=== PATIENT | female | born 1990 | race Caucasian/White ===

== ENCOUNTER 2018-10-25 01:28 | Emergency (ER) | payer OTHER ==
--- NOTE | 2018-10-25 01:40 | ER Report ---
History and Physical Time Seen By MD: 01:40 Hx. of Stated Complaint: PT REPORTS VOMITING AND ABD PAIN FOR 12 HOURS. HPI/ROS CHIEF COMPLAINT: right lower abdominal pain HISTORY OF PRESENT ILLNESS: This is a 28 year old female. She is having right lower abdominal pain for the last 12 hours, worsening in severity. Associated nausea and vomiting as well. History of ovarian cysts in the past. This seems worse than past episodes. No diarrhea. No dysuria or changes in urination. Has had appendectomy and cholecystectomy in past. No fevers. Last period normal a few weeks ago. Allergies: Coded Allergies: Penicillins (Verified Allergy, Severe, THROAT SWELLING, 10/25/18) fentanyl (Verified Allergy, Severe, THROAT SWELLING AND HIVES, 10/25/18) iodine (Verified Allergy, Severe, ANAPHLAXIS, 10/25/18) ketorolac (Verified Allergy, Severe, THROAT SWELLING AND HIVES, 10/25/18) prochlorperazine (Verified Allergy, Severe, THROAT SWELLS AND RASH, 10/25/18) metoclopramide (Verified Allergy, Intermediate, RASH, 10/25/18) ondansetron (Verified Allergy, Intermediate, RASH, 10/25/18) haloperidol (Verified Adverse Reaction, Unknown, ANXIETY ATTACK, 10/25/18) Uncoded Allergies: IV CONTRAST (Allergy, Severe, ANAPLAXIS, 10/25/18) Home Meds Active Scripts Zolpidem Tartrate (AMBIEN) 10 Mg Tablet, 1 TAB PO QHS, #7 TAB 0 Refills Prov:LAUREN CHAVARRIA MD 10/25/18 Promethazine Hcl (PROMETHAZINE HCL) 12.5 Mg Supp.rect, 12.5 MG RC Q6H PRN for NAUSEA/VOMITING, #10 SUPP.RECT 0 Refills Prov:LAUREN CHAVARRIA MD 10/25/18 Promethazine Hcl (PROMETHAZINE HCL) 25 Mg Tablet, 25 MG PO Q6H, #20 TAB 0 Refills Prov:LAUREN CHAVARRIA MD 10/25/18 Oxycodone Hcl/Acetaminophen (PERCOCET 5-325 MG TABLET) 1 Each Tablet, 1 EACH PO Q4H PRN for PAIN, #12 TAB 0 Refills Prov:LAUREN CHAVARRIA MD 10/25/18 Reported Medications Sertraline Hcl (SERTRALINE HCL) 100 Mg Tablet, 3 TAB PO QDAY, TAB 10/25/18 Reviewed Nurses Notes: Yes Constitutional Vital Sign - Last 24 Hours 10/25/18 10/25/18 10/25/18 10/25/18 01:33 01:33 01:58 02:03 Temp 98.9 Pulse 110 99 Resp 16 B/P (MAP) 136/87 136/87 (103) 128/70 (89) Pulse Ox 94 84 O2 Delivery Room Air 10/25/18 10/25/18 10/25/18 10/25/18 02:13 02:28 02:30 02:35 Pulse 100 104 97 B/P (MAP) 119/73 (88) Pulse Ox 92 95 93 10/25/18 10/25/18 10/25/18 10/25/18 03:05 03:20 03:30 03:35 Pulse 94 97 79 B/P (MAP) 110/50 (70) Pulse Ox 89 97 85 10/25/18 10/25/18 10/25/18 10/25/18 03:50 04:00 04:05 04:20 Pulse 87 100 99 B/P (MAP) 125/79 (94) Pulse Ox 97 94 97 Intake and Output 10/24/18 10/24/18 10/25/18 15:00 23:00 07:00 Intake Total 1000 ml Balance 1000 ml Physical Exam General Appearance: The patient is alert. No acute distress. Eyes: Pupils are equal, round. No pallor, injection or icterus. ENT: Mucous membranes are moist. Respiratory: Lungs are clear to auscultation. Cardiovascular: Regular rate and rhythm. No murmurs, gallops or rubs. Normal perfusion. Gastrointestinal: Abdomen is soft, tender in right lower quadrant. Nondistended. Guarding but no rebound. Normal active bowel sounds. No costovertebral angle tenderness with percussion. Neurological: Alert and oriented x3. Skin: Warm and dry. No rashes. DIFFERENTIAL DIAGNOSIS: After history and physical exam, differential diagnosis was considered for abdominal pain in a female including but not limited to ovarian cyst, pelvic inflammatory disease, ovarian torsion, urinary tract infection Medical Decision Making Data Points Result Diagram: 10/25/18 0140 10/25/18 0140 Laboratory Hematology Test 10/25/18 01:31 10/25/18 01:40 Urine Color Yellow Urine Clarity Clear Urine pH 6.0 pH (4.8-9.5) Urine Specific [place] 1.016 Urine Protein Negative mg/dL (NEGATIVE) Urine Glucose (UA) Negative mg/dL (NEGATIVE) Urine Ketones Negative mg/dL (NEGATIVE) Urine Blood Negative (NEGATIVE) Urine Nitrite Negative (NEGATIVE) Urine Bilirubin Negative (NEGATIVE) Urine Urobilinogen Negative mg/dL (0.2-1.9) Urine Leukocyte Esterase Negative (NEGATIVE) Urine RBC None /HPF (0-2/HPF) Urine WBC 1 /HPF (0-5/HPF) Urine Squamous Epithelial Cells Many /LPF (</=FEW) Urine Bacteria Negative /HPF (NONE-FEW) Urine Mucus Few /HPF (NONE-FEW) Red Blood Count 4.73 M/uL (4.17-5.56) Mean Corpuscular Volume 81.6 fL (80.0-96.0) Mean Corpuscular Hemoglobin 26.6 pg (26.0-33.0) Mean Corpuscular Hemoglobin Concent 32.6 g/dL (32.0-36.0) Red Cell Distribution Width 15.4 % (11.5-14.5) Mean Platelet Volume 7.7 fL (7.2-11.1) Neutrophils (%) (Auto) 67.4 % (39.4-72.5) Lymphocytes (%) (Auto) 26.2 % (17.6-49.6) Monocytes (%) (Auto) 5.3 % (4.1-12.4) Eosinophils (%) (Auto) 0.5 % (0.4-6.7) Basophils (%) (Auto) 0.6 % (0.3-1.4) Nucleated RBC Relative Count (auto) 0.0 /100WBC Neutrophils # (Auto) 10.3 K/uL (2.0-7.4) Lymphocytes # (Auto) 4.0 K/uL (1.3-3.6) Monocytes # (Auto) 0.8 K/uL (0.3-1.0) Eosinophils # (Auto) 0.1 K/uL (0.0-0.5) Basophils # (Auto) 0.1 K/uL (0.0-0.1) Nucleated RBC Absolute Count (auto) 0.01 K/uL Sodium Level 139 mmol/L (137-145) Potassium Level 3.2 mmol/L (3.5-5.0) Chloride Level 109 mmol/L (98-107) Carbon Dioxide Level 22 mmol/L (22-31) Blood Urea Nitrogen 11 mg/dl (7-18) Creatinine 0.60 mg/dl (0.52-1.04) Glomerular Filtration Rate Calc > 60.0 Random Glucose 92 mg/dl (75-110) Calcium Level 8.8 mg/dl (8.4-10.2) Total Bilirubin 0.2 mg/dl (0.2-1.3) Aspartate Amino Transf (AST/SGOT) 16 U/L (0-35) Alanine Aminotransferase (ALT/SGPT) 20 U/L (0-56) Alkaline Phosphatase 124 U/L (0-126) Total Protein 7.4 g/dl (6.3-8.2) Albumin 4.1 g/dl (3.5-5.0) Amylase Level 77 U/L (0-110) Lipase 114 U/L (23-300) Human Chorionic Gonadotropin, Qual Negative (NEGATIVE) Chemistry Test 10/25/18 01:31 10/25/18 01:40 Urine Color Yellow Urine Clarity Clear Urine pH 6.0 pH (4.8-9.5) Urine Specific [place] 1.016 Urine Protein Negative mg/dL (NEGATIVE) Urine Glucose (UA) Negative mg/dL (NEGATIVE) Urine Ketones Negative mg/dL (NEGATIVE) Urine Blood Negative (NEGATIVE) Urine Nitrite Negative (NEGATIVE) Urine Bilirubin Negative (NEGATIVE) Urine Urobilinogen Negative mg/dL (0.2-1.9) Urine Leukocyte Esterase Negative (NEGATIVE) Urine RBC None /HPF (0-2/HPF) Urine WBC 1 /HPF (0-5/HPF) Urine Squamous Epithelial Cells Many /LPF (</=FEW) Urine Bacteria Negative /HPF (NONE-FEW) Urine Mucus Few /HPF (NONE-FEW) White Blood Count 15.3 k/uL (4.5-11.0) Red Blood Count 4.73 M/uL (4.17-5.56) Hemoglobin 12.6 g/dL (12.0-16.0) Hematocrit 38.6 % (34.0-47.0) Mean Corpuscular Volume 81.6 fL (80.0-96.0) Mean Corpuscular Hemoglobin 26.6 pg (26.0-33.0) Mean Corpuscular Hemoglobin Concent 32.6 g/dL (32.0-36.0) Red Cell Distribution Width 15.4 % (11.5-14.5) Platelet Count 359 K/uL (150-450) Mean Platelet Volume 7.7 fL (7.2-11.1) Neutrophils (%) (Auto) 67.4 % (39.4-72.5) Lymphocytes (%) (Auto) 26.2 % (17.6-49.6) Monocytes (%) (Auto) 5.3 % (4.1-12.4) Eosinophils (%) (Auto) 0.5 % (0.4-6.7) Basophils (%) (Auto) 0.6 % (0.3-1.4) Nucleated RBC Relative Count (auto) 0.0 /100WBC Neutrophils # (Auto) 10.3 K/uL (2.0-7.4) Lymphocytes # (Auto) 4.0 K/uL (1.3-3.6) Monocytes # (Auto) 0.8 K/uL (0.3-1.0) Eosinophils # (Auto) 0.1 K/uL (0.0-0.5) Basophils # (Auto) 0.1 K/uL (0.0-0.1) Nucleated RBC Absolute Count (auto) 0.01 K/uL Glomerular Filtration Rate Calc > 60.0 Calcium Level 8.8 mg/dl (8.4-10.2) Total Bilirubin 0.2 mg/dl (0.2-1.3) Aspartate Amino Transf (AST/SGOT) 16 U/L (0-35) Alanine Aminotransferase (ALT/SGPT) 20 U/L (0-56) Alkaline Phosphatase 124 U/L (0-126) Total Protein 7.4 g/dl (6.3-8.2) Albumin 4.1 g/dl (3.5-5.0) Amylase Level 77 U/L (0-110) Lipase 114 U/L (23-300) Human Chorionic Gonadotropin, Qual Negative (NEGATIVE) Urinalysis Test 10/25/18 01:31 Urine Color Yellow Urine Clarity Clear Urine pH 6.0 pH (4.8-9.5) Urine Specific [place] 1.016 Urine Protein Negative mg/dL (NEGATIVE) Urine Glucose (UA) Negative mg/dL (NEGATIVE) Urine Ketones Negative mg/dL (NEGATIVE) Urine Blood Negative (NEGATIVE) Urine Nitrite Negative (NEGATIVE) Urine Bilirubin Negative (NEGATIVE) Urine Urobilinogen Negative mg/dL (0.2-1.9) Urine Leukocyte Esterase Negative (NEGATIVE) Urine RBC None /HPF (0-2/HPF) Urine WBC 1 /HPF (0-5/HPF) Urine Squamous Epithelial Cells Many /LPF (</=FEW) Urine Bacteria Negative /HPF (NONE-FEW) Urine Mucus Few /HPF (NONE-FEW) EKG/Imaging Imaging TRANSVAGINAL NON-OB HISTORY: Right lower quadrant/pelvic pain for 15 hours. COMPARISON: None. TECHNIQUE: Endovaginal ultrasound pelvis. Grayscale, color flow Doppler and spectral Doppler were performed. FINDINGS: Uterus: Normal myometrial echotexture. Uterus measures 8.1 x 5.4 x 4.6 cm. There are nabothian cysts. Endometrium: Normal echotexture. Endometrial thickness is 6 mm. Ovaries and adnexa: Right: The right ovary is normal in echotexture. It measures 3.0 x 3.7 x 3.0 cm. It contains a 1.3 x 1.4 x 1.6 cm hemorrhagic cyst. There is normal ovarian venous and arterial flow, and normal arterial and venous waveforms are demonstrated. The right adnexum is normal. Left: Peripheral rim of normal ovarian tissue. Ovary measures 4.1 x 3.4 x 4.2 cm and contains a 3.9 x 3.1 x 4.0 cm simple cyst. There is normal ovarian arterial and venous flow, and normal venous and arterial waveforms are demonstrated. The left adnexum is normal. Free pelvic fluid: None. IMPRESSION: 1. Normal uterus. 2. 1.6 cm hemorrhagic right ovarian cyst. No evidence for torsion. 3. 4.0 cm simple left ovarian cyst. No evidence for torsion. Report Dictated By: Ira Castillo at 10/25/2018 3:30 AM ED Course/Re-evaluation Clinical Indication for ER IV: Hydration, IV Access ED Course An IV was started and the patient was given Phenergan 12.5 mg IV and morphine 4 mg IV. Also given a liter fluid. Ultrasound obtained after laboratory studies. Ultrasound showed a 1.6 cm right ovarian hemorrhagic cyst and a 4 cm simple cyst on the left. Patient kept requesting pain medicine, requesting a pain medicine that starts with a D. I did give her Dilaudid 0.5 mg before the ultrasound and then another dose after the ultrasound. She kept asking for more and I indicated that we cannot do that. I did give her another dose of 4 mg of morphine some more Phenergan and then send her home with Percocet and Phenergan to use at home. Did inform her that if she was not having pain control home she could return and we could contact [facility] to talk about whether she would need a surgical procedure, but recommended the best course of action would be to return home and follow up with her [facility] in [place]. Decision to Disposition Date: Oct 25, 2018 Decision to Disposition Time: 03:59 Depart Departure Latest Vital Signs Vital Signs Date Time Temp Pulse Resp B/P (MAP) Pulse Ox O2 Delivery O2 Flow Rate FiO2 10/25/18 04:20 99 97 10/25/18 04:00 125/79 (94) 10/25/18 01:33 98.9 16 Room Air Comment Of note: The patient had told us that she was calling her grandmother who was going to give her a ride. After she was given an oral dose of Percocet, the last IV dose of morphine, and the IV dose of Phenergan, the IV was removed and she went out, saying that her grandmother was here to pick her up. Nursing staff observed her going out and getting in her car and driving away. Impression: Primary Impression: Hemorrhagic cyst of right ovary Condition: Improved Disposition: HOME OR SELF-CARE New Scripts Zolpidem Tartrate (AMBIEN) 10 Mg Tablet 1 TAB PO QHS, #7 TAB 0 Refills Prov: LAUREN CHAVARRIA MD 10/25/18 Promethazine Hcl (PROMETHAZINE HCL) 12.5 Mg Supp.rect 12.5 MG RC Q6H PRN for NAUSEA/VOMITING, #10 SUPP.RECT 0 Refills Prov: LAUREN CHAVARRIA MD 10/25/18 Promethazine Hcl (PROMETHAZINE HCL) 25 Mg Tablet 25 MG PO Q6H, #20 TAB 0 Refills Prov: LAUREN CHAVARRIA MD 10/25/18 Oxycodone Hcl/Acetaminophen (PERCOCET 5-325 MG TABLET) 1 Each Tablet 1 EACH PO Q4H PRN for PAIN, #12 TAB 0 Refills Prov: LAUREN CHAVARRIA MD 10/25/18 Patient Instructions: Ovarian Cyst (ED) Additional Instructions: You have a simple cyst on your left ovary and a hemorrhagic cyst on the right ovary. These usually resolve on their own with time; however, we recommend follow-up with your [facility] for further evaluation if pain continues. Take Percocet 5/325, one every 4 hours as needed for pain. Take Ibuprofen 200mg over the counter tablets, 4 tablets every 6 hours for pain. You can take Phenergan, either the suppository or the tablet, every 6 hours as needed for nausea. Return to the ER for re-evaluation if symptoms worsening or not controlled at home. LAUREN CHAVARRIA MD Oct 25, 2018 01:40
[2018-10-25] MEDS ORDERED: SERT-181 PO (01:42)
[2018-10-25] MEDS ORDERED: NS(*) 0.9% 1000 ML BAG 1,000 ML IV ONE (01:48)
[2018-10-25] MEDS ORDERED: PROMETHAZINE 25 MG/ML 1 ML AMP IVP ONE ×2 (01:50→04:00)
[2018-10-25] MEDS ORDERED: MORPHINE 4 MG/ML SDV IVP ONE ×2 (01:50→04:00)
[2018-10-25 02:03] LABS: PLATELET COUNT, AUTOMATED 359 K/uL (150-450)
[2018-10-25] MEDS ORDERED: HYDROMORPHONE HCL 1 MG/ML SYRINGE IVP ONE ×2 (02:25→03:25)
--- NOTE | 2018-10-25 03:38 | RADIOLOGY IMAGING REPORT ---
FACILITY: [facility] - [place] PATIENT NAME: Kim Bautista : 1990 MR: [id number] V: [id number] EXAM DATE: ORDERING PHYSICIAN: LAUREN CHAVARRIA [place]CHNOLOG[place] [facility] [place] B[place] : 1990 Visit/Account:[id number] Date of Sevice: 10/25/2018 TRANSVAGINAL NON-OB HISTORY: Right lower quadrant/pelvic pain for 15 hours. COMPARISON: None. TECHNIQUE: Endovaginal ultrasound pelvis. Grayscale, color flow Doppler and spectral Doppler were per formed. FINDINGS: Uterus: Normal myometrial echotexture. Uterus measures 8.1 x 5.4 x 4.6 cm. There are nabothian cysts. Endometrium: Normal echotexture. Endometrial thickness is 6 mm. Ovaries and adnexa: Right: The right ovary is normal in echotexture. It measures 3.0 x 3.7 x 3.0 cm. It contains a 1 .3 x 1.4 x 1.6 cm hemorrhagic cyst. There is normal ovarian venous and arterial flow, and normal lauryn rial and venous waveforms are demonstrated. The right adnexum is normal. Left: Peripheral rim of normal ovarian tissue. Ovary measures 4.1 x 3.4 x 4.2 cm and contains a 3.9 x 3.1 x 4.0 cm simple cyst. There is normal ovarian arterial and venous flow, and normal venous a nd arterial waveforms are demonstrated. The left adnexum is normal. Free pelvic fluid: None. IMPRESSION: 1. Normal uterus. 2. 1.6 cm hemorrhagic right ovarian cyst. No evidence for torsion. 3. 4.0 cm simple left ovarian cyst. No evidence for torsion. Report Dictated By: Ira Castillo at 10/25/2018 3:30 AM Report E-Signed By: Ira Castillo at 10/25/2018 3:34 AM WSN:[id number]
[2018-10-25 04:00] VITALS: BP 125/79
[2018-10-25] MEDS ORDERED: PROMETHAZINE HCL 25 MG TAB TH 2 TAB/BOTTLE PO ONE (04:00)
[2018-10-25] MEDS ORDERED: PROMETHAZINE HCL(*) 25 MG SUPP PR ONE (04:00)
[2018-10-25] MEDS ORDERED: oxyCODONE/ACETAMIN 5/325MG TH 2 TAB/BOTTLE PO ONE (04:00)
[2018-10-25] MEDS ORDERED: PROM12.514 RC (04:01)
[2018-10-25] MEDS ORDERED: OXYC-865 PO (04:01)
[2018-10-25] MEDS ORDERED: PROM-110 PO (04:01)
[2018-10-25] MEDS ORDERED: ZOLP-350 PO (04:08)
== END 2018-10-25 04:25 | disposition home or self-care (01) ==
LOC: ER 01:42
DX: N83.201 Unspecified ovarian cyst, right side (principal)
CPT/HCPCS: 76830; 81001; 82150; 83690; 84703; 85025; 96361; 96374; 96375; 96376; 99284; J1170; J2270; J2550; J7030; J8498; 82040; 82247; 82310; 82374; 82435; 82565; 82947; 84075; 84132; 84155; 84295; 84450; 84460; 84520

== ENCOUNTER 2018-10-29 02:07 | Emergency (ER) | payer OTHER ==
[~2018-10-29 02:07] MED LIST: OXYC-865 PO; PROM-110 PO; PROM12.514 RC; SERT-181 PO; ZOLP-350 PO
--- NOTE | 2018-10-29 02:12 | ER Report ---
History and Physical Time Seen By MD: 02:11 HPI/ROS CHIEF COMPLAINT: Vomiting, abdominal pain HISTORY OF PRESENT ILLNESS: 28-year-old female presents ambulatory to the ER complaining of worsening right lower quadrant pain. Patient was seen here on 10/25/18 with right lower quadrant abdominal pain. Patient is status post appen dectomy and cholecystectomy. Patient had an ultrasound which showed a hemorrhagic right ovarian cyst and a 4 cm simple cyst on the left. Patient was discharged home with Percocet 5/325 No. 12 and Phenergan for her nausea control. She has numerous allergies. She returns complaining at she's been vomiting for the last 12 hours, unable to keep anything down. Including her pain medication. REVIEW OF SYSTEMS: Respiratory: No cough, no dyspnea. Cardiovascular: No chest pain, no palpitations. Gastrointestinal: As above Musculoskeletal: No back pain. Allergies: Coded Allergies: Penicillins (Verified Allergy, Severe, THROAT SWELLING, 10/25/18) fentanyl (Verified Allergy, Severe, THROAT SWELLING AND HIVES, 10/25/18) iodine (Verified Allergy, Severe, ANAPHLAXIS, 10/25/18) ketorolac (Verified Allergy, Severe, THROAT SWELLING AND HIVES, 10/25/18) prochlorperazine (Verified Allergy, Severe, THROAT SWELLS AND RASH, 10/25/18) metoclopramide (Verified Allergy, Intermediate, RASH, 10/25/18) ondansetron (Verified Allergy, Intermediate, RASH, 10/25/18) haloperidol (Verified Adverse Reaction, Unknown, ANXIETY ATTACK, 10/25/18) Uncoded Allergies: IV CONTRAST (Allergy, Severe, ANAPLAXIS, 10/25/18) Home Meds Active Scripts Promethazine HCl (Phenergan) 25 Mg Supp.rect, 1 SUPP ME Q4H PRN for NA USEA/VOMITING, #12 Prov:CARLA AMIN DO 10/29/18 Zolpidem Tartrate (AMBIEN) 10 Mg Tablet, 1 TAB PO QHS, #7 TAB 0 Refills Prov:LAUREN CHAVARRIA MD 10/25/18 Promethazine Hcl (PROMETHAZINE HCL) 12.5 Mg Supp.rect, 12.5 MG RC Q6H PRN for NAUSEA/VOMITING, #10 SUPP.RECT 0 Refills Prov:LAUREN CHAVARRIA MD 10/25/18 Promethazine Hcl (PROMETHAZINE HCL) 25 Mg Tablet, 25 MG PO Q6H, #20 TAB 0 Refills Prov:LAUREN CHAVARRIA MD 10/25/18 Oxycodone Hcl/Acetaminophen (PERCOCET 5-325 MG TABLET) 1 Each Tablet, 1 EACH PO Q4H PRN for PAIN, #12 TAB 0 Refills Prov:LAUREN CHAVARRIA MD 10/25/18 Reported Medications Sertraline Hcl (SERTRALINE HCL) 100 Mg Tablet, 3 TAB PO QDAY, TAB 10/25/18 Reviewed Nurses Notes: Yes Old Medical Records Reviewed: Yes Hx Substance Use Disorder: No Hx Alcohol Use: No Constitutional Vital Sign - Last 24 Hours 10/29/18 10/29/18 10/29/18 10/29/18 02:11 02:14 02:30 02:37 Temp 97.9 Pulse 90 87 Resp 15 B/P (MAP) 132/85 132/85 (101) 120/57 (78) Pulse Ox 91 91 O2 Delivery Room Air 10/29/18 10/29/18 10/29/18 10/29/18 03:00 03:04 03:09 03:30 Pulse 87 B/P (MAP) 123/68 (86) 132/72 (92) Pulse Ox 90 89 10/29/18 10/29/18 10/29/18 03:39 04:01 04:06 Pulse 90 78 Pulse Ox 89 90 90 Physical Exam General Appearance: The patient is alert, has no immediate need for airway protection and no current signs of toxicity. Vital signs stable, afebrile, pulse ox normal, no acute distress HEENT: Pupils equal and round no injection. Oropharynx without redness or exudate Respiratory: Chest is non tender, lungs are clear to auscultation. Cardiac: regular rate and rhythm Gastrointestinal: Abdomen is soft and non tender, no masses, bowel sounds normal. No CVA tenderness Musculoskeletal: Neck: Neck is supple and non tender. No lymphadenopathy Extremities have full range of motion and are non tender. Skin: No rashes or lesions. DIFFERENTIAL DIAGNOSIS: After history and physical exam differential diagnosis was considered for abdominal pain in a female including but not limited to ovarian cyst, pelvic inflammatory disease, ovarian torsion, urinary tract infection, and appendicitis. Medical Decision Making ED Course/Re-evaluation ED Course Patient was admitted to an examination room. H&P was done. The differential diagnoses was considered. Patient was treated with Phenergan 25 mg IM. After several hours of observation. She was tolerating by mouth's, but drinking some johnson yousif. She'll be discharged home with Phenergan suppositories. No further opiate pain medication which prescribed. She is advised to follow-up with [facility] tomorrow in [place] morning if she continues to have further pain. I am suspicious the patient was drug seeking. On examination, I was able to press quite deeply into her right abdomen as I was auscultating abdomen. She appeared to have no discomfort with palpitations. Patient slept for several hours after receiving Phenergan IM. She did not appear to be in any discomfort while she was sleeping. On her previous ER visit. She left and drove despite stating she had a ride after being administered numerous IV opiates and promethazine. Decision to Disposition Date: Oct 29, 2018 Decision to Disposition Time: 02:33 Depart Departure Latest Vital Signs Vital Signs Date Time Temp Pulse Resp B/P (MAP) Pulse Ox O2 Delivery O2 Flow Rate FiO2 10/29/18 04:06 78 90 10/29/18 03:30 132/72 (92) 10/29/18 02:11 97.9 15 Room Air Impression: Primary Impression: Vomiting Additional Impression: Hemorrhagic cyst of right ovary Condition: Improved Disposition: HOME OR SELF-CARE Referrals: JESSE TELLEZ TRAVIS MD [place], KIM N MD New Scripts Promethazine HCl (Phenergan) 25 Mg Supp.rect 1 SUPP ME Q4H PRN for NAUSEA/VOMITING, #12 Prov: CARLA AMIN DO 10/29/18 Patient Instructions: Abdominal Pain (ED), Ovarian Cyst (ED) Additional Instructions: Alternate Tylenol 650 mg with ibuprofen 600 mg every 4 hours Apply heating pad to your abdomen to soothe ear pain Follow-up with [facility] in the morning Problem Qualifiers Primary Impression: Vomiting Vomiting type: unspecified Vomiting Intractability: unspecified Nausea presence: unspecified Qualified Codes: R11.10 - Vomiting, unspecified CARLA AMIN DO Oct 29, 2018 02:12
[2018-10-29] MEDS ORDERED: PROMETHAZINE 25 MG/ML 1 ML AMP IM ONE (02:30)
[2018-10-29] MEDS ORDERED: PROM25SU8 PR (02:41)
[2018-10-29 04:30] VITALS: BP 118/76
== END 2018-10-29 04:40 | disposition home or self-care (01) ==
LOC: ER 02:10
DX: N83.201 Unspecified ovarian cyst, right side (principal); R11.10 Vomiting, unspecified
CPT/HCPCS: 96372; 99283; J2550